=== PATIENT | male | born 1980 | race Caucasian/White ===

== ENCOUNTER 2016-09-13 20:00 | Emergency (ER) | payer OTHER ==
--- NOTE | ~2016-09-13 | CT71 ---
[facility] A Service [facility] RADIOLOGY TEXT RESULTS PATIENT: ZIGGY JIMENEZ LOCATION: SED : 80 UNIT #: [id number] AGE: [address]: Keyur Parsons MD SEX: M ORDER DR: [id number] [place] [id number] MR#: [id number] #: [id number] NAME: ZIGGY JIMENEZ. : 1980 SEX: M STUDY DATE/TIME: 09/13/2016 20:21 UNIT: SED ROOM: STUDY DESCRIPTION: CT Head Wo Contrast Attending Physician: Keyur Parsons M.D. Ordering Physician: Keyur Parsons M.D. Primary Care Physician: Primary Care Physician No MEDICAL IMAGING REPORT This report is preliminary unless electronic signature is present. EXAM CT head, 09/13/2016 HISTORY Weakness, states was sitting on couch and right side of body became numb and heart started racing. Complains of dizziness tonight 1 hour prior to arrival. History of TIAs. The patient states this lasted about 35 minutes, now complains of body aches and fatigue. TECHNIQUE CT head performed skull base through vertex without intravenous contrast. No prior CTs of head for comparison at this institution. This CT exam was performed with one or more of the following radiation dose reduction techniques: automatic exposure control, adjustment of mA and/or kV according to patient size, and iterative reconstruction. FINDINGS Brainstem unremarkable. Cerebellum and cerebral hemispheres show normal maharaj matter-white matter differentiation. No hemorrhage. No evidence of acute cortical ischemia. Midline structures nondisplaced. Basal ganglia tact. Ventricles, cisterns, sulci normal in size and contour. No intra or extraaxial mass effect or abnormal intracranial fluid collection. The intraorbital soft tissues are unremarkable. The visualized paranasal sinuses and mastoid air cells are clear. IMPRESSION Normal CT of the head. If the patient has ongoing neurologic symptoms, consider followup imaging, preferably with MRI if the patient is a candidate. [facility] A Service [facility] RADIOLOGY TEXT RESULTS PATIENT: ZIGGY JIMENEZ [place] [facility] [place] [birth year] UNIT #: [id number] AGE: [address]: Keyur Parsons MD SEX: M ORDER DR: Dictated by... Stuart Bond M.D. THIS IS AN ELECTRONICALLY VERIFIED REPORT Stuart Bond M.D. at 09/14/2016 8:05 PM GIGI/saadia TD: 09/14/2016 02:04 JOB #: [id number] MEDICAL IMAGING REPORT Page 1 of 1
--- NOTE | ~2016-09-13 | EKG ---
PATIENT: ZIGGY JIMENEZ UNIT #: [id number] Ventricular Rate: 104 BPM Atrial Rate: 104 BPM P-R Interval: 142 ms QRS Duration: 92 ms Q-T Interval: 348 ms QTC Calculation(Bezet): 457 ms P [place]: 43 degrees Calculated R [place]: 19 degrees Calculated T [place]: 31 degrees Diagnosis Line: Sinus tachycardia Diagnosis Line: Otherwise normal ECG Diagnosis Line: No previous ECGs available Diagnosis Line: Confirmed by MARCI COREY MD ([id number]) on 09/17/2016 Diagnosis Line: 11:11:24 PM INTERPRETING MD: MADHAV YOUNG
[2016-09-13 19:53] LABS: URINE SOURCE CLEAN CATCH
[2016-09-13 19:55] LABS: BASOPHIL# 0.1 X10e3 (0-0.3); BASOPHIL% 0.6 % (0-2.5); EOSINOPHIL# 0.1 X10e3 (0-0.7); EOSINOPHIL% 0.6 % (0.0-7.0); HEMATOCRIT 44.9 % (38.0-50.0); HEMOGLOBIN 15.3 gm/dL (13.0-16.0); LYMPHOCYTE# 2.8 X10e3 (1.0-3.5); LYMPHOCYTE% 32.8 % (17.0-45.0); MEAN CORPUSCULAR HEMOGLOBIN 30.4 PG (28-34); MEAN CORPUSCULAR HGB CONC 34.2 g/dL (30-36); MEAN PLATELET VOLUME 7.9 FL (6.5-11.5); MONOCYTE# 0.6 X10e3 (0-1.0); MONOCYTE% 7.4 % (3.0-12.0); NEUTROPHIL# 5.1 X10e3 (1.5-7.1); NEUTROPHIL% 58.6 % (40-75); PLATELET COUNT 233 X10e3 (140-420); RED BLOOD COUNT 5.04 X10e (3.90-5.60); RED CELL DISTRIBUTION WIDTH 12.8 % (11.0-15.5); WHITE BLOOD COUNT 8.6 X10e3 (4.0-10.5)
[2016-09-13 19:56] LABS: DIFF IND NO
[2016-09-13 19:57] LABS: URINE APPEARANCE CLEAR; URINE BILIRUBIN NEG (NEG); URINE BLOOD TRACE-INTACT (NEG); URINE COLOR YELLOW; URINE GLUCOSE NEG (NORM); URINE KETONE NEG (NEG); URINE LEUKOCYTE ESTERASE NEG (NEG); URINE NITRATE NEG (NEG); URINE PH 6.5 (5-8); URINE PROTEIN NEG (NEG); URINE SPECIFIC GRAVITY <=1.005 (1.003-1.035); URINE UROBILINOGEN 0.2 MG/DL (NORM)
[2016-09-13 19:59] LABS: MICRO INDICATED? YES
[2016-09-13 20:00] LABS: CULTURE INDICATED? NO; URINE BACTERIA NEG (NEG); URINE SQUAMOUS EPITHELIAL CELL FEW /[HPF]; URINE WBC NEG /[HPF] (0-5)
[~2016-09-13 20:00] MED LIST: ASPIRIN81 MG PO
[2016-09-13 20:06] LABS: AMPHETAMINE NEG (NEG); BARBITURATES NEG (NEG); BENZODIAZEPINES NEG (NEG); COCAINE NEG (NEG); MARIJUANA NEG (NEG); OPIATES NEG (NEG); TRICYCLIC ANTIDEPRESSANTS NEG (NEG); U METHADONE NEG (NEG)
[2016-09-13 20:12] LABS: ALBUMIN SERUM 4.4 g/dL (3.5-5.0); BILIRUBIN, DIRECT 0.1 mg/dL (0.0-0.2); BILIRUBIN,INDIRECT 0.2 mg/dL (0.0-0.9); BILIRUBIN,TOTAL 0.3 mg/dL (0.2-2.0); BUN/CREATININE RATIO 15.55; CALCIUM SERUM 9.2 mg/dL (8.4-10.2); CREATININE SERUM 0.9 mg/dL (0.6-1.4); GLOM FILT RATE Estimated 109.5 mL/min (>60); POTASSIUM 3.5 mmol/L (3.5-5.1); PROTEIN TOTAL SERUM 7.4 g/dL (6.0-8.3)
[2016-09-13 20:18] LABS: POC - CKMB 1.6 ng/mL (0.0-7.9); POC - TROPONIN <0.05 ng/mL (<=0.05)
== END 2016-09-13 21:00 | disposition home or self-care (01) ==
LOC: SED 20:00
PROVIDERS: Emergency Medicine
DX: F41.0 Panic disorder [episodic paroxysmal anxiety] (principal); R20.2 Paresthesia of skin; F17.200 Nicotine dependence, unspecified, uncomplicated; Z79.82 Long term (current) use of aspirin
CPT/HCPCS: 36415; 70450; 80048; 80076; 80307; 81003; 82553; 83874; 84484; 85025; 93005; 99284